=== PATIENT | female | born 1990 | race American Indian/Alaskan Native ===

== ENCOUNTER 2016-12-23 21:31 | Emergency (ER) | payer SELFPAY ==
[2016-12-23 22:14] LABS: Basophils % (Auto) 0.5 % (0.0-1.8); Eosinophils % (Auto) 1.3 % (0.0-4.3); Hematocrit 37.1 % (30.3-42.9); Hemoglobin 12.4 gm/dl (10.1-14.3); Mean Corpuscular HGB Conc 33 % (30-34); Mean Corpuscular Hemoglobin 26 pg (28-32); Mean Corpuscular Volume 79 fl (79-97); Platelet Count 315 K/mm3 (140-440); Red Blood Count 4.71 M/mm3 (3.65-5.03); Red Cell Distribution Width 14.9 % (13.2-15.2); White Blood Count 6.9 K/mm3 (4.5-11.0)
[2016-12-23 22:40] LABS: Alanine Aminotransferase 11 units/L (7-56); Albumin 4.2 g/dL (3.9-5); Albumin/Globulin Ratio 1.3 %; Alkaline Phosphatase 39 units/L (35-129); Anion Gap 17 mmol/L; BUN/Creatinine Ratio 14.28; Blood Urea Nitrogen 10 mg/dL (7-17); Calcium 9.1 mg/dL (8.4-10.2); Carbon Dioxide 24 mmol/L (22-30); Chloride 101.7 mmol/L (98-107); Glucose 80 mg/dL (65-100); Lipase 26 units/L (13-60); Sodium 139 mmol/L (137-145); Total Protein 7.5 g/dL (6.3-8.2)
[2016-12-24 05:12] LABS: Bacteria,Urine 1+ /HPF (Negative); Bilirubin,Urine NEG (Negative); Blood,Urine MOD (Negative); Ketones,Urine TR mg/dL (Negative); Leukocyte Esterase,Urine SM (Negative); Mucus,Urine 1+ /HPF; Nitrite,Urine POS (Negative); Protein,Urine <15 mg/dL mg/dL (Negative); Urobilinogen,Urine < 2.0 mg/dL (<2.0)
--- NOTE | 2016-12-24 07:00 | Emergency Department Report ---
ED Abdominal Pain HPI - General Chief Complaint: Abdominal Pain Stated Complaint: AB PAIN, HEADACHE Time Seen by Provider: 12/24/16 06:41 Source: patient Mode of arrival: Ambulatory Limitations: No Limitations - History of Present Illness Initial Comments: 26-year-old female with recent on September 11 here with complaint of continued diffuse abdominal pain and occasional vaginal bleeding. Patient states that the pain is diffuse and cramping comes and goes. States she's had it for about several months now. She's also had vaginal bleeding intermittently since the . She does not describe this heavy. Otherwise no other complaints no fevers chills nausea vomiting. No vaginal discharge. MD Complaint: abdominal pain -: Gradual Location: diffuse, suprapubic Radiation: none Migration to: no migration Severity scale (0 -10): 10 Quality: cramping Consistency: intermittent Improves With: nothing Worsens With: nothing Associated Symptoms: denies: nausea, vomiting, diarrhea, fever, chills, constipation, dysuria, hematemesis, hematochezia, melena, hematuria, anorexia - Related Data Previous Rx's Medication Instructions Recorded Last Taken Type Acetaminophen/Codeine [Tylenol #3] 1 tab PO Q6H PRN #20 tab 05/17/15 Unknown Rx Ondansetron [Zofran Odt] 4 mg PO Q8H PRN #10 tab.rapdis 05/17/15 Unknown Rx traMADol [Ultram 50 MG tab] 50 mg PO Q6HR PRN #20 tablet 05/17/15 Unknown Rx ALBUTEROL Inhaler [Proair] 2 puff IH QID PRN #1 inhalation 03/15/16 Unknown Rx ALBUTEROL NEB's [Proventil 0.083% 2.5 mg IH Q4H PRN #1 box 03/15/16 Unknown Rx NEBS] Amoxicillin/K Clav Tab [Augmentin 1 tab PO Q12HR #20 tab 03/15/16 Unknown Rx 875 mg] predniSONE [Deltasone] 50 mg PO QDAY #5 tab 03/15/16 Unknown Rx HYDROcodone/APAP 5-325 [Idabel 1 each PO Q6HR PRN #12 tablet 03/28/16 Unknown Rx 5/325] Ketorolac Tromethamine [Acular 1 drop OP Q6H PRN #1 drops 03/28/16 Unknown Rx 0.5% Opth Soln] Ofloxacin 0.3% [Ocuflox] 1 drops OP Q30MIN #1 bottle 03/28/16 Unknown Rx Ciprofloxacin HCl [Ciprofloxacin 500 mg PO BID #6 tablet 12/24/16 Unknown Rx TAB] Ibuprofen [Motrin] 600 mg PO Q8H PRN #30 tablet 12/24/16 Unknown Rx Allergies Allergy/AdvReac Type Severity Reaction Status Date / Time shellfish derived Allergy Angioedema Verified 12/23/16 21:43 ED Review of Systems ROS: Stated complaint: AB PAIN, HEADACHE Other details as noted in HPI Comment: All other systems reviewed and negative Constitutional: denies: chills, fever Eyes: denies: eye pain, eye discharge, vision change ENT: denies: ear pain, throat pain Respiratory: denies: cough, shortness of breath, wheezing Cardiovascular: denies: chest pain, palpitations Endocrine: no symptoms reported Gastrointestinal: abdominal pain. denies: nausea, diarrhea Genitourinary: abnormal menses. denies: urgency, dysuria, discharge Musculoskeletal: denies: back pain, joint swelling, arthralgia Skin: denies: rash, lesions Neurological: denies: headache, weakness, paresthesias Psychiatric: denies: anxiety, depression Hematological/Lymphatic: denies: easy bleeding, easy bruising ED Past Medical Hx - Past Medical History Previous Medical History?: Yes Hx Asthma: Yes - Surgical History Past Surgical History?: Yes Additional Surgical History: left eye - Family History Family history: no significant - Social History Smoking Status: Never Smoker Substance Use Type: Alcohol, Marijuana - Medications Home Medications: Home Medications Medication Instructions Recorded Confirmed Last Taken Type Acetaminophen/Codeine [Tylenol #3] 1 tab PO Q6H PRN #20 tab 05/17/15 Unknown Rx Ondansetron [Zofran Odt] 4 mg PO Q8H PRN #10 tab.rapdis 05/17/15 Unknown Rx traMADol [Ultram 50 MG tab] 50 mg PO Q6HR PRN #20 tablet 05/17/15 Unknown Rx ALBUTEROL Inhaler [Proair] 2 puff IH QID PRN #1 inhalation 03/15/16 Unknown Rx ALBUTEROL NEB's [Proventil 0.083% 2.5 mg IH Q4H PRN #1 box 03/15/16 Unknown Rx NEBS] Amoxicillin/K Clav Tab [Augmentin 1 tab PO Q12HR #20 tab 03/15/16 Unknown Rx 875 mg] predniSONE [Deltasone] 50 mg PO QDAY #5 tab 03/15/16 Unknown Rx HYDROcodone/APAP 5-325 [Idabel 1 each PO Q6HR PRN #12 tablet 03/28/16 Unknown Rx 5/325] Ketorolac Tromethamine [Acular 1 drop OP Q6H PRN #1 drops 03/28/16 Unknown Rx 0.5% Opth Soln] Ofloxacin 0.3% [Ocuflox] 1 drops OP Q30MIN #1 bottle 03/28/16 Unknown Rx Ciprofloxacin HCl [Ciprofloxacin 500 mg PO BID #6 tablet 12/24/16 Unknown Rx TAB] Ibuprofen [Motrin] 600 mg PO Q8H PRN #30 tablet 12/24/16 Unknown Rx ED Physical Exam - General Limitations: No Limitations General appearance: alert, in no apparent distress - Head Head exam: Present: atraumatic, normocephalic - Eye Eye exam: Present: normal appearance. Absent: scleral icterus, conjunctival injection - ENT ENT exam: Present: mucous membranes moist - Neck Neck exam: Present: normal inspection. Absent: lymphadenopathy - Respiratory Respiratory exam: Present: normal lung sounds bilaterally. Absent: respiratory distress, wheezes, rales - Cardiovascular Cardiovascular Exam: Present: regular rate, normal rhythm. Absent: systolic murmur, diastolic murmur, rubs, gallop - GI/Abdominal GI/Abdominal exam: Present: soft, normal bowel sounds. Absent: distended, tenderness, guarding, rebound - Extremities Exam Extremities exam: Present: normal inspection - Back Exam Back exam: Present: normal inspection - Neurological Exam Neurological exam: Present: alert, oriented X3 - Psychiatric Psychiatric exam: Present: normal affect, normal mood - Skin Skin exam: Present: warm, dry, intact, normal color. Absent: rash ED Course Vital Signs 12/23/16 12/24/16 12/24/16 21:43 01:55 08:03 Temperature 98.3 F 98.6 F Pulse Rate 64 57 L 64 Respiratory 20 18 16 Rate Blood Pressure 131/86 129/79 Blood Pressure 104/44 [Left] O2 Sat by Pulse 100 100 100 Oximetry 12/24/16 08:04 Temperature Pulse Rate Respiratory 16 Rate Blood Pressure Blood Pressure [Left] O2 Sat by Pulse 100 Oximetry ED Medical Decision Making - Lab Data Result diagrams: 12/23/16 22:02 12/23/16 22:01 Laboratory Results - last 24 hr 12/23/16 12/23/16 12/23/16 21:57 22:01 22:02 WBC 6.9 RBC 4.71 Hgb 12.4 Hct 37.1 MCV 79 MCH 26 L MCHC 33 RDW 14.9 Plt Count 315 Lymph % (Auto) 36.4 H Linn % (Auto) 9.4 H Eos % (Auto) 1.3 Baso % (Auto) 0.5 Lymph # 2.5 Linn # 0.6 Eos # 0.1 Baso # 0.0 Seg Neutrophils % 52.4 Seg Neutrophils # 3.6 Sodium 139 Potassium 4.0 Chloride 101.7 Carbon Dioxide 24 Anion Gap 17 BUN 10 Creatinine 0.7 Estimated GFR > 60 BUN/Creatinine Ratio 14.28 Glucose 80 Calcium 9.1 Total Bilirubin 0.70 AST 11 ALT 11 Alkaline Phosphatase 39 Total Protein 7.5 Albumin 4.2 Albumin/Globulin Ratio 1.3 Lipase 26 HCG, Qual Negative Urine Color Urine Turbidity Urine pH Ur Specific Wellborn Urine Protein Urine Glucose (UA) Urine Ketones Urine Blood Urine Nitrite Urine Bilirubin Urine Urobilinogen Ur Leukocyte Esterase Urine WBC (Auto) Urine RBC (Auto) U Epithel Cells (Auto) Urine Bacteria (Auto) Urine Mucus 12/24/16 04:14 WBC RBC Hgb Hct MCV MCH MCHC RDW Plt Count Lymph % (Auto) Linn % (Auto) Eos % (Auto) Baso % (Auto) Lymph # Linn # Eos # Baso # Seg Neutrophils % Seg Neutrophils # Sodium Potassium Chloride Carbon Dioxide Anion Gap BUN Creatinine Estimated GFR BUN/Creatinine Ratio Glucose Calcium Total Bilirubin AST ALT Alkaline Phosphatase Total Protein Albumin Albumin/Globulin Ratio Lipase HCG, Qual Urine Color Yellow Urine Turbidity Clear Urine pH 6.0 Ur Specific Wellborn 1.013 Urine Protein <15 mg/dl Urine Glucose (UA) Neg Urine Ketones Tr Urine Blood Mod Urine Nitrite Pos Urine Bilirubin Neg Urine Urobilinogen < 2.0 Ur Leukocyte Esterase Sm Urine WBC (Auto) 18.0 H Urine RBC (Auto) 4.0 U Epithel Cells (Auto) 1.0 Urine Bacteria (Auto) 1+ Urine Mucus 1+ - Medical Decision Making 26-year-old female here with diffuse abdominal pain more significant in the suprapubic region here with occasional intermittent vaginal bleeding. Her clinical exam she is mildly tender in suprapubic region but otherwise no other complaints. Her labs show an elevation in white blood cell count in her urine and positive nitrates. She likely has UTI. She does not have a elevation in white blood cell count however given her persistent symptoms I will get a transvaginal ultrasound to rule out any sort of retained products of conception although I think this is highly unlikely at this point. Plan to treat with oral antibiotics for UTI. Plan to treat patient for UTI. Ultrasound shows no retained products and uterus but it does show bilateral complex cystic structures in the ovaries. These could be hemorrhagic cysts versus other process. Plan have the patient follow up for repeat ultrasound in 6 weeks. We'll treat the patient with outpatient antibiotics. Portions of this chart were dictated with dictation software. There may be dictation errors contained within this note. Critical care attestation.: If time is entered above; I have spent that time in minutes in the direct care of this critically ill patient, excluding procedure time. ED Disposition Clinical Impression: UTI (urinary tract infection), Complex ovarian cyst Disposition: DC-01 TO HOME OR SELFCARE Is pt being admited?: No Condition: Stable Instructions: Abdominal Pain (ED), Ovarian Cyst (ED), Urinary Tract Infection in Women (ED) Prescriptions: Ciprofloxacin HCl [Ciprofloxacin TAB] 500 mg PO BID #6 tablet Ibuprofen [Motrin] 600 mg PO Q8H PRN #30 tablet PRN Reason: Pain Referrals: PRIMARY CARE, [Primary Care Provider] - 3-5 Days RODERICK ARORA MD [Staff Physician] - as needed (Call to set up a follow-up appointment for repeat ultrasound in 6 weeks)
[2016-12-24 08:05] VITALS: BP 104/44
--- NOTE | 2016-12-24 08:18 | Ultrasound Report ---
ULTRASOUND PELVIS - TRANSVAGINAL INDICATION: Abdominal/pelvic pain. Evaluate for retained products. Status post on 09/11/2016. COMPARISON: None similar. FINDINGS: Transvaginal pelvic sonography demonstrates a homogenous 6.9 x 4.3 x 4.9 cm anteverted uterus with endometrial thickness of approximately 3 mm toward the fundus, endovaginal image 8. Minimal pelvic free fluid. A 4.8 x 4.1 x 4.8 cm right ovary near completely replaced by an approximately 4.2 cm complex, possibly hemorrhagic intrinsic cyst with diffuse intrinsic echoes/septations. Left ovary is 4.3 x 4.1 x 3.9 cm and also demonstrates a 3.5 cm complex intrinsic appearance as on endovaginal image 26. CONCLUSION: 1. Homogenous uterus without sonographic evidence of retained products of conception. Please correlate. 2. Bilateral ovarian complex masses/hemorrhagic cyst noted, as described. Sonographic follow-up in approximately 6 weeks or opposite phase of the menstrual cycle may also be considered to assess for interval change or resolution, as warranted. Thank you for the opportunity to participate in this patient's care.
== END 2016-12-24 09:58 | disposition home or self-care (01) ==
LOC: ED 21:31
DX: N39.0 Urinary tract infection, site not specified (principal); N83.209 Unspecified ovarian cyst, unspecified side; J45.909 Unspecified asthma, uncomplicated; F12.10 Cannabis abuse, uncomplicated
CPT/HCPCS: 36415; 76830; 80053; 81001; 83690; 84703; 85025

== ENCOUNTER 2018-11-13 08:33 | Emergency (ER) | payer MEDICAID ==
[2018-11-13] MEDS ORDERED: SUBLIMAZE IV ONE (09:22)
[2018-11-13] MEDS ORDERED: NACL 0.9% 500 ML 500 ML IV ONE (09:23)
[2018-11-13] MEDS ORDERED: ZOFRAN IV ONE (09:23)
[2018-11-13] MEDS ORDERED: TYLENOL PO ONE (09:24)
[2018-11-13 09:49] LABS: Hematocrit 35.1 % (30.3-42.9); Hemoglobin 11.9 gm/dl (10.1-14.3); Mean Corpuscular HGB Conc 34 % (30-34); Mean Corpuscular Volume 81 fl (79-97); Platelet Count 314 K/mm3 (140-440); Red Blood Count 4.35 M/mm3 (3.65-5.03); Red Cell Distribution Width 13.5 % (13.2-15.2)
[2018-11-13 09:56] LABS: Bilirubin,Urine NEG (Negative); Blood,Urine MOD (Negative); Color,Urine Yellow (Yellow); Mucus,Urine FEW /HPF; Protein,Urine <15 mg/dL mg/dL (Negative); Urobilinogen,Urine < 2.0 mg/dL (<2.0)
[2018-11-13 10:01] LABS: INR 1.39 (0.87-1.13)
[2018-11-13 10:14] LABS: Alanine Aminotransferase 9 units/L (7-56); Albumin 3.9 g/dL (3.9-5); BUN/Creatinine Ratio 8; Blood Urea Nitrogen 5 mg/dL (7-17); Calcium 9.1 mg/dL (8.4-10.2); Hemolysis Index 1
--- NOTE | 2018-11-13 10:25 | XRay Report ---
CHEST 2 VIEWS INDICATION: cp sob. COMPARISON: None available. FINDINGS: Support devices: None. Heart: Normal. Lungs/pleura: Right basal opacities on the frontal view with an air bronchogram in the larger opacity . The lungs are otherwise clear. No pleural effusion. No pneumothorax. Additional findings: None. IMPRESSION: Right basal opacities suggest atelectasis or pneumonia. Signer Name: Bola Cisneros MD Signed: 11/13/2018 10:21 AM Workstation Name: [id number]
--- NOTE | 2018-11-13 10:39 | Emergency Department Report ---
ED General Adult HPI - General Chief complaint: Vaginal Bleeding Stated complaint: ABD PAIN/VAG BLEED Time Seen by Provider: 11/13/18 09:10 Source: patient, EMS (ems notes not available at time of chart dictation), RN notes reviewed Mode of arrival: Stretcher Limitations: No Limitations - History of Present Illness Initial comments: This is a 27-year-old female. This patient is not known to this provider previously. She thinks that she is today. She assumes that if she is today, she is 7, para 3. Her last menstrual period is reportedly August 28. She presents to the ER with multiple complaints. Her first complaint is painful vaginal bleeding. She has suprapubic and bilateral lower quadrant pain. This pain has been present over the past day or so. It got worse at 3:00 in the morning. She describes a bloody vaginal discharge and brown vaginal discharge. The pain increases with palpation and decreases with rest. There is positive nausea. Positive vomiting 3, nonbloody, nonbilious. She denies urinary symp toms. She denies fever. She may have chills. She is not sure if she has a cough. She has no nasal discharge. She has no epistaxis. She has no dental pain. She also describes right upper quadrant pain and right thoracic pain, increases with palpation and deep inspiration. Decreases with rest. It radiates to the back. It has been present since 3:00 in the morning. It is constant -: Gradual, hour(s), days(s) Location: chest, abdomen Radiation: back Severity scale (0 -10): 9 Quality: other Consistency: other Improves with: other Worsens with: other - Related Data Previous Rx's Medication Instructions Recorded Last Taken Type Acetaminophen/Codeine [Tylenol #3] 1 tab PO Q6H PRN #20 tab 05/17/15 Unknown Rx Ondansetron [Zofran Odt] 4 mg PO Q8H PRN #10 tab.rapdis 05/17/15 Unknown Rx traMADol [Ultram 50 MG tab] 50 mg PO Q6HR PRN #20 tablet 05/17/15 Unknown Rx ALBUTEROL Inhaler (OR & NICU) 2 puff IH QID PRN #1 inhalation 03/15/16 Unknown Rx [Proair] ALBUTEROL NEB's [Proventil 0.083% 2.5 mg IH Q4H PRN #1 box 03/15/16 Unknown Rx NEBS] Amoxicillin/K Clav Tab [Augmentin 1 tab PO Q12HR #20 tab 03/15/16 Unknown Rx 875 mg] predniSONE [Deltasone] 50 mg PO QDAY #5 tab 03/15/16 Unknown Rx HYDROcodone/APAP 5-325 [[place] 1 each PO Q6HR PRN #12 tablet 03/28/16 Unknown Rx 5/325] Ketorolac Tromethamine [Acular 1 drop OP Q6H PRN #1 drops 03/28/16 Unknown Rx 0.5% Opth Soln] Ofloxacin 0.3% [Ocuflox 0.3% opth] 1 drops OP Q30MIN #1 bottle 03/28/16 Unknown Rx Ciprofloxacin HCl [Ciprofloxacin 500 mg PO BID #6 tablet 12/24/16 Unknown Rx TAB] Ibuprofen [Motrin] 600 mg PO Q8H PRN #30 tablet 12/24/16 Unknown Rx Acetaminophen [Non-Aspirin Extra 500 mg PO Q6HR PRN #30 tablet 11/13/18 Unknown Rx Strength] Albuterol Sulfate [Proair 90 mcg IH Q4HR PRN #2 aer.pow.ba 11/13/18 Unknown Rx Respiclick] Amoxicillin/Potassium Clav 1 each PO BID #13 tablet 11/13/18 Unknown Rx [Augmentin 875-125 Tablet] Doxylamine Succinate/Vit B6 1 each PO QHS PRN #30 tablet. 11/13/18 Unknown Rx [Derian Dr 10-10 mg Tablet] Gisela Root [Gisela] 250 mg PO QID PRN #30 capsule 11/13/18 Unknown Rx Vit-Fe Fumar-FA [ 1 tab PO QDAY #30 tablet 11/13/18 Unknown Rx Vitamin] Allergies Allergy/AdvReac Type Severity Reaction Status Date / Time shellfish derived Allergy Angioedema Verified 12/23/16 21:43 ED Review of Systems ROS: Stated complaint: ABD PAIN/VAG BLEED Other details as noted in HPI Constitutional: chills, malaise. denies: fever Eyes: denies: eye discharge ENT: denies: epistaxis Respiratory: cough, shortness of breath Cardiovascular: chest pain Gastrointestinal: abdominal pain, nausea, vomiting Genitourinary: discharge. denies: urgency, dysuria Musculoskeletal: back pain Skin: denies: lesions Neurological: denies: headache Psychiatric: anxiety Hematological/Lymphatic: denies: easy bleeding ED Past Medical Hx - Past Medical History Previous Medical History?: Yes Hx Asthma: Yes - Surgical History Past Surgical History?: Yes Additional Surgical History: left eye, 3 abortions - Social History Smoking Status: Current Some Day Smoker - Medications Home Medications: Home Medications Medication Instructions Recorded Confirmed Last Taken Type Acetaminophen/Codeine [Tylenol #3] 1 tab PO Q6H PRN #20 tab 05/17/15 Unknown Rx Ondansetron [Zofran Odt] 4 mg PO Q8H PRN #10 tab.rapdis 05/17/15 Unknown Rx traMADol [Ultram 50 MG tab] 50 mg PO Q6HR PRN #20 tablet 05/17/15 Unknown Rx ALBUTEROL Inhaler (OR & NICU) 2 puff IH QID PRN #1 inhalation 03/15/16 Unknown Rx [Proair] ALBUTEROL NEB's [Proventil 0.083% 2.5 mg IH Q4H PRN #1 box 03/15/16 Unknown Rx NEBS] Amoxicillin/K Clav Tab [Augmentin 1 tab PO Q12HR #20 tab 03/15/16 Unknown Rx 875 mg] predniSONE [Deltasone] 50 mg PO QDAY #5 tab 03/15/16 Unknown Rx HYDROcodone/APAP 5-325 [[place] 1 each PO Q6HR PRN #12 tablet 03/28/16 Unknown Rx 5/325] Ketorolac Tromethamine [Acular 1 drop OP Q6H PRN #1 drops 03/28/16 Unknown Rx 0.5% Opth Soln] Ofloxacin 0.3% [Ocuflox 0.3% opth] 1 drops OP Q30MIN #1 bottle 03/28/16 Unknown Rx Ciprofloxacin HCl [Ciprofloxacin 500 mg PO BID #6 tablet 12/24/16 Unknown Rx TAB] Ibuprofen [Motrin] 600 mg PO Q8H PRN #30 tablet 12/24/16 Unknown Rx Acetaminophen [Non-Aspirin Extra 500 mg PO Q6HR PRN #30 tablet 11/13/18 Unknown Rx Strength] Albuterol Sulfate [Proair 90 mcg IH Q4HR PRN #2 aer.pow.ba 11/13/18 Unknown Rx Respiclick] Amoxicillin/Potassium Clav 1 each PO BID #13 tablet 11/13/18 Unknown Rx [Augmentin 875-125 Tablet] Doxylamine Succinate/Vit B6 1 each PO QHS PRN #30 tablet. 11/13/18 Unknown Rx [Diclegis Dr 10-10 mg Tablet] Gisela Root [Gisela] 250 mg PO QID PRN #30 capsule 11/13/18 Unknown Rx Vit-Fe Fumar-FA [ 1 tab PO QDAY #30 tablet 11/13/18 Unknown Rx Vitamin] ED Physical Exam - General Limitations: No Limitations General appearance: alert, anxious, in distress - Head Head exam: Present: atraumatic, normocephalic - Eye Eye exam: Present: normal appearance, EOMI. Absent: nystagmus - ENT ENT exam: Present: normal exam, normal orophraynx, mucous membranes moist, normal external ear exam - Neck Neck exam: Present: normal inspection, full ROM. Absent: tenderness, meningismus - Respiratory Respiratory exam: Present: normal lung sounds bilaterally, chest wall tenderness (chaperoned by ARNEL Foster). Absent: respiratory distress, wheezes, rales, rhonchi, stridor - Cardiovascular Cardiovascular Exam: Present: regular rate, normal rhythm, normal heart sounds. Absent: bradycardia, tachycardia, irregular rhythm, systolic murmur, diastolic murmur, rubs, gallop - GI/Abdominal GI/Abdominal exam: Present: soft, tenderness, other (there is suprapubic and bilateral lower quadrant tenderness. There is negative Nolen sign. The is negative Rovsing sign. Suprapubic and left lower quadrant more tender than the right lower quadrant). Absent: distended, guarding, rebound, rigid, pulsatile mass - External exam: Present: normal external exam, bleeding, other (chaperoned by ARNEL Soler) Speculum exam: Present: vaginal bleeding - Extremities Exam Extremities exam: Present: normal inspection, full ROM, other (2+ pulses noted in the bilateral upper, lower extremities. Compartments soft. No long bony te nderness. The pelvis is stable.). Absent: pedal edema, joint swelling, calf tenderness - Back Exam Back exam: Present: normal inspection, full ROM. Absent: tenderness, CVA tenderness (R), CVA tenderness (L), paraspinal tenderness, vertebral tenderness - Neurological Exam Neurological exam: Present: alert, oriented X3, normal gait, other (Extraocular movements intact. Tongue midline. No facial droop. Facial sensation intact to light touch in the V1, V2, V3 distribution bilaterally. 5 and 5 strength in 4 extremities.. Sensation is intact to light touch in 4 extremities.). Absent: motor sensory deficit - Psychiatric Psychiatric exam: Present: anxious - Skin Skin exam: Present: warm, dry, intact, normal color. Absent: rash ED Course Vital Signs 11/13/18 11/13/18 11/13/18 08:55 09:00 09:43 Temperature Pulse Rate Respiratory Rate Blood Pressure 124/89 124/89 Blood Pressure [Right] O2 Sat by Pulse 100 98 100 Oximetry 11/13/18 11/13/18 11/13/18 09:51 10:44 10:46 Temperature 98.8 F Pulse Rate 75 Respiratory 16 Rate Blood Pressure 124/89 Blood Pressure 113/70 [Right] O2 Sat by Pulse 99 98 Oximetry 11/13/18 11/13/18 11/13/18 11:01 11:30 12:01 Temperature Pulse Rate Respiratory Rate Blood Pressure 113/70 124/89 124/89 Blood Pressure [Right] O2 Sat by Pulse 100 99 100 Oximetry 11/13/18 12:31 Temperature Pulse Rate Respiratory Rate Blood Pressure 124/89 Blood Pressure [Right] O2 Sat by Pulse 100 Oximetry - Reevaluation(s) Reevaluation #1: 11/13/18 10:57 Differential diagnosis, including but not limited to: Ectopic , threatened miscarriage, ovarian cyst, urinary tract infection, constipation, costochondritis, pneumonia, acute coronary syndrome, pericarditis, pulmonary embolism Assessment and plan: 27-year-old female with 2 complaints Complaint #1, lower abdominal pain with reported and vaginal bleeding. The patient is afebrile with reassuring vital signs. She has mild diffuse lower abdominal tenderness. Left side greater than right side. As per review of old ultrasounds, patient noted to have complex ovarian cysts and hemorrhagic cysts. We'll perform gynecologic exam, gynecologic ultrasound, give pain medication, and reassess. Complaint #2, pleuritic right-sided chest wall pain, and possible cough/nausea. The patient is not tachycardic or hypoxic. However, she reports that she is . She is low risk by well's criteria, however d-dimer sent, elevated, therefore, CT scan of the chest will be obtained to screen for pulmonary embolism. Extensive discussion had with patient's while nurse ARNEL MEDINA was present as a witness, patient was informed about the risks of radiation exposure cancer, defects. She verbalizes understanding and has consented to CT scan acquisition. Acute coronary syndrome, pericarditis myocarditis unlikely, as the patient is not febrile, not tachycardic, and has a normal troponin. Patient from a cardiovascular risk profile standpoint is low risk by the ARLEEN score, heart score. Reevaluation #2: 11/13/18 11:40 Ultrasound shows no intrauterine . Quantitative hCG 242. Discussed with obstetrics occupational medicine specialist, Dr. Stephens, who agreed with plan for 2 day follow-up and outpatient follow-up for lower abdominal pain, vaginal bleeding and positive test. He indicates that his group is amenable to see the patient as outpatient on Tuesday. The patient will need to call for follow-up appointment. Reevaluation #3: 11/13/18 13:57 CT scan of the chest corroborates diagnosis of right lower lobe community- acquired pneumonia. Patient saturating well, playing on a cellular phone, and does not appear to be in any acute distress. The patient is a suitable candidate for oral outpatient antibiotic therapy. The patient will be commenced on amoxicillin antibiotic. She will be discharged with a 7 day prescription f or amoxicillin antibiotic. We will also discharge with Tylenol for pain, vitamins, nausea medication, and albuterol as needed. We will have the patient come back in 2-3 days for a repeat checkup/evaluation for her lower abdominal pain, , and community-acquired pneumonia. The patient verbalizes understanding, and indicates that she is reliable to follow- up. ED Medical Decision Making - Lab Data Result diagrams: 11/13/18 09:35 11/13/18 09:35 Vital Signs 11/13/18 11/13/18 11/13/18 08:55 09:00 09:43 Temperature Blood Pressure 124/89 124/89 O2 Sat by Pulse 100 98 100 Oximetry 11/13/18 09:51 Temperature 98.8 F Blood Pressure O2 Sat by Pulse Oximetry Lab Results 11/13/18 11/13/18 11/13/18 Range/Units 09:35 09:35 09:35 WBC 11.6 H (4.5-11.0) K/mm3 RBC 4.35 (3.65-5.03) M/mm3 Hgb 11.9 (10.1-14.3) gm/dl Hct 35.1 (30.3-42.9) % MCV 81 (79-97) fl MCH 27 L (28-32) pg MCHC 34 (30-34) % RDW 13.5 (13.2-15.2) % Plt Count 314 (140-440) K/mm3 PT 16.7 H (12.2-14.9) Sec. INR 1.39 H (0.87-1.13) D-Dimer 468.49 H (0-234) ng/mlDDU Sodium 138 (137-145) mmol/L Potassium 3.6 (3.6-5.0) mmol/L Chloride 103.4 (98-107) mmol/L Carbon Dioxide 22 (22-30) mmol/L Anion Gap 16 mmol/L BUN 5 L (7-17) mg/dL Creatinine 0.6 L (0.7-1.2) mg/dL Estimated GFR > 60 ml/min BUN/Creatinine Ratio 8 % Glucose 102 H (65-100) mg/dL Calcium 9.1 (8.4-10.2) mg/dL Magnesium (1.7-2.3) mg/dL Total Bilirubin 0.40 (0.1-1.2) mg/dL AST 11 (5-40) units/L ALT 9 (7-56) units/L Alkaline Phosphatase 39 (35-129) units/L Total Creatine Kinase (30-135) units/L Troponin T < 0.010 (0.00-0.029) ng/mL Total Protein 7.4 (6.3-8.2) g/dL Albumin 3.9 (3.9-5) g/dL Albumin/Globulin Ratio 1.1 % HCG, Quant (0-4) mIU/mL Urine Color (Yellow) Urine Turbidity (Clear) Urine pH (5.0-7.0) Ur Specific [place] (1.003-1.030) Urine Protein (Negative) mg/dL Urine Glucose (UA) (Negative) mg/dL Urine Ketones (Negative) mg/dL Urine Blood (Negative) Urine Nitrite (Negative) Urine Bilirubin (Negative) Urine Urobilinogen (<2.0) mg/dL Ur Leukocyte Esterase (Negative) Urine WBC (Auto) (0.0-6.0) /HPF Urine RBC (Auto) (0.0-6.0) /HPF U Epithel Cells (Auto) (0-13.0) /HPF Urine Mucus /HPF 11/13/18 11/13/18 11/13/18 Range/Units 09:35 09:43 09:45 WBC (4.5-11.0) K/mm3 RBC (3.65-5.03) M/mm3 Hgb (10.1-14.3) gm/dl Hct (30.3-42.9) % MCV (79-97) fl MCH (28-32) pg MCHC (30-34) % RDW (13.2-15.2) % Plt Count (140-440) K/mm3 PT (12.2-14.9) Sec. INR (0.87-1.13) D-Dimer (0-234) ng/mlDDU Sodium (137-145) mmol/L Potassium (3.6-5.0) mmol/L Chloride (98-107) mmol/L Carbon Dioxide (22-30) mmol/L Anion Gap mmol/L BUN (7-17) mg/dL Creatinine (0.7-1.2) mg/dL Estimated GFR ml/min BUN/Creatinine Ratio % Glucose (65-100) mg/dL Calcium (8.4-10.2) mg/dL Magnesium 1.90 (1.7-2.3) mg/dL Total Bilirubin (0.1-1.2) mg/dL AST (5-40) units/L ALT (7-56) units/L Alkaline Phosphatase (35-129) units/L Total Creatine Kinase 122 (30-135) units/L Troponin T (0.00-0.029) ng/mL Total Protein (6.3-8.2) g/dL Albumin (3.9-5) g/dL Albumin/Globulin Ratio % HCG, Quant 242.9 H (0-4) mIU/mL Urine Color Yellow (Yellow) Urine Turbidity Clear (Clear) Urine pH 8.0 H (5.0-7.0) Ur Specific [place] 1.013 (1.003-1.030) Urine Protein <15 mg/dl (Negative) mg/dL Urine Glucose (UA) Neg (Negative) mg/dL Urine Ketones 20 (Negative) mg/dL Urine Blood Mod (Negative) Urine Nitrite Neg (Negative) Urine Bilirubin Neg (Negative) Urine Urobilinogen < 2.0 (<2.0) mg/dL Ur Leukocyte Esterase Neg (Negative) Urine WBC (Auto) 1.0 (0.0-6.0) /HPF Urine RBC (Auto) 1.0 (0.0-6.0) /HPF U Epithel Cells (Auto) 1.0 (0-13.0) /HPF Urine Mucus Few /HPF Vital Signs 11/13/18 11/13/18 11/13/18 08:55 09:00 09:43 Temperature Pulse Rate Respiratory Rate Blood Pressure 124/89 124/89 Blood Pressure [Right] O2 Sat by Pulse 100 98 100 Oximetry 11/13/18 11/13/18 09:51 10:46 Temperature 98.8 F Pulse Rate 75 Respiratory 16 Rate Blood Pressure Blood Pressure 113/70 [Right] O2 Sat by Pulse 98 Oximetry - EKG Data -: EKG Interpreted by Al EKG shows normal: sinus rhythm Rate: normal - EKG Data When compared to previous EKG there are: previous EKG unavailable 11/13/18 11:00 This is a normal sinus rhythm, 85 bpm, normal axis, high left ventricular voltage, the EKG is abnormal, the EKG is not consistent with ST elevation myocardial infarction. - Radiology Data Radiology results: report reviewed, image reviewed ort Referring Physician: PEDRO NARAYAN Patient Name: EPIFANIO CONTE Date of : 1990 Sex: Female Report Date: 2018-11-13 Report Status: Finalized Findings [facility] [address] [place] [address] XRay Report Signed Patient: EPIFANIO CONTE MR#: [id number] : 1990 Acct:[id number] Age/Sex: 27 / F ADM Date: 11/13/18 Loc: ED Attending Dr: Ordering Physician: PEDRO NARAYAN MD Date of Service: 11/13/18 Procedure(s): XR chest routine 2V Accession Number(s): [id number] cc: PEDRO NARAYAN MD Fluoro Time In Minutes: CHEST 2 VIEWS INDICATION: cp sob. COMPARISON: None available. FINDINGS: Support devices: None. Heart: Normal. Lungs/pleura: Right basal opacities on the frontal view with an air bronchogram in the larger opacity. The lungs are otherwise clear. No pleural effusion. No pneumothorax. Additional findings: None. IMPRESSION: Right basal opacities suggest atelectasis or pneumonia. Signer Name: Mitzi Godoy MD Signed: 11/13/2018 10:21 AM Workstation Name: [id number] Transcribed By: REF Dictated By: MITZI GODOY MD Electronically Authenticated By: MITZI GODOY MD Signed Date/Time: 11/13/18 1021 Print Report Referring Physician: PEDRO NARAYAN Patient Name: EPIFANIO CONTE Date of : 1990 Sex: Female Report Date: 2018-11-13 Report Status: [place] [address] Ultrasound Report Signed Patient: EPIFANIO CONTE MR#: [id number] : 1990 Acct:[id number] Age/Sex: 27 / F ADM Date: 11/13/18 Loc: ED Attending Dr: Ordering Physician: PEDRO NARAYAN MD Date of Service: 11/13/18 Procedure(s): US transvaginal Accession Number(s): [id number] cc: PEDRO NARAYAN MD ULTRASOUND PELVIS DUPLEX DOPPLER COMPLETE ULTRASOUND TRANSVAGINAL HISTORY: Lower abdominal pain, pelvic pain TECHNIQUE: Transabdominal and transvaginal imaging with color and spectral Doppler interrogation. COMPARISON: Ultrasound transvaginal report dated 12/24/2016. FINDINGS: The uterus is anteverted and measures 8.5 x 4.0 x 5.5 cm. No uterine fibroid disease is identified. The cervix is unremarkable. The endometrium measures 8 mm in thickness. No obvious mass or fluid collection. The right ovary measures 3.5 x 2.1 x 3.8 cm. There is a 3.2 cm complex area in the right ovary of uncertain significance. Recently ruptured cyst The left ovary is unremarkable and measures 3.2 x 1.0 x 2.9 cm. There is trace free fluid in the cul-de-sac. Spectral Doppler waveforms demonstrate arterial flow to both ovaries. IMPRESSION: 3.2 cm complex area in the right ovary of uncertain significance. Possible recently ruptured ovarian cyst. No aggressive mass or pelvic abscess. The left ovarian lesion described on the previous exam has resolved. Unremarkable uterus and endometrium. Signer Name: Tex Saeed Jr, MD Signed: 11/13/2018 11:25 AM Workstation Name: [id number] Transcribed By: TTR Dictated By: TEX SAEED JR, MD Electronically Authenticated By: TEX SAEED JR, MD Signed Date/Time: 11/13/18 1125 Print Report Referring Physician: PEDRO NARAYAN Patient Name: EPIFANIO CONTE Date of : 1990 Sex: Female Report Date: 2018-11-13 Report Status: Finalized Findings [facility] [address] [place] [address] Cat Scan Report Signed Patient: EPIFANIO CONTE MR#: [id number] : 1990 Acct:[id number] Age/Sex: 27 / F ADM Date: 11/13/18 Loc: ED Attending Dr: Ordering Physician: PEDRO NARAYAN MD Date of Service: 11/13/18 Procedure(s): CT angio chest Accession Number(s): [id number] cc: PEDRO NARAYAN MD CTA CHEST WITH IV CONTRAST INDICATION / CLINICAL INFORMATION: Chest pain and shortness of breath. TECHNIQUE: Axial CT images were obtained through the chest after injection of 100 cc Omnipaque 350 IV contrast. Consent was obtained prior to the administration of the contrast. 3 plane MIP and/or 3D reconstructions were produced. All CT scans at this location are performed using CT dose reduction based on patient size. COMPARISON: None available. FINDINGS: PULMONARY ARTERIES: No pulmonary emboli. THORACIC AORTA: Normal. HEART: Normal. CORONARY ARTERIES: No significant calcification. PLEURA: No pleural effusion. No pneumothorax. LYMPH NODES: Mild right hilar lymph node enlargement. 3 lymph nodes measure approximately 1 cm each. LUNGS: Wedge-shaped consolidation of the right lower lobe extends to the pleura. A second area of more patchy airspace disease in the right lower lobe. The rest of the lungs are clear. ADDITIONAL FINDINGS: None. UPPER ABDOMEN: No acute findings. SKELETAL STRUCTURES: No significant osseous abnormality. IMPRESSION: 1. No CT evidence for pulmonary embolism. 2. Right lower lobe pneumonia with mild right hilar lymphadenopathy. Signer Name: Mitzi Godoy MD Signed: 11/13/2018 1:39 PM Workstation Name: [id number] Transcribed By: REF Dictated By: MITZI GODOY MD Electronically Authenticated By: MITZI GODOY MD Signed Date/Time: 11/13/18 2752 Critical care attestation.: If time is entered above; I have spent that time in minutes in the direct care of this critically ill patient, excluding procedure time. ED Disposition Clinical Impression: Vaginal bleeding during Right lower lobe pneumonia Qualifiers: Pneumonia type: due to unspecified organism Qualified Code(s): J18.1 - Lobar pneumonia, unspecified organism Disposition: - TO HOME OR SELFCARE Is pt being admited?: No Does the pt Need Aspirin: No Condition: Stable Instructions: Bacterial Pneumonia (ED) Additional Instructions: Drink 4-6 cups of water per day for the next week. Take gisela, diclegis medications as needed for nausea/vomiting. The acetaminophen as treated for chest wall pain and lower abdominal pain. Take the antibiotic twice daily as directed. Take the albuterol medication as needed for cough, wheezing, shortness of breath. Recommend the patient follow up in 2-3 days for repeat checkup/evaluation. The patient may return to this emergency room for repeat checkup/evaluation on both her pneumonia, and vaginal bleeding during , or she may follow-up with the listed gynecology practice. Rest, avoid heavy lifting, and avoid strenuous physical activities. Do not have sex until cleared by her primary care doctor or humanities and languages professor. Do not take Motrin, ibuprofen, Naprosyn, Aleve. Do not consume alcohol, does not smoke cigarettes. Return to the emergency room right away with new, worse or different symptoms, vaginal bleeding more than 2 pads soaked for hour, lightheadedness, severe shortness of breath, intractable nausea and vomiting, change in mental status, or any new, worsening or different symptoms not present on the initial emergency room evaluation Prescriptions: Doxylamine Succinate/Vit B6 [Derian [place] 10-10 mg Tablet] 1 each PO QHS PRN #30 tablet. PRN Reason: Nausea Amoxicillin/Potassium Clav [Augmentin 875-125 Tablet] 1 each PO BID #13 tablet Gisela Root [Gisela] 250 mg PO QID PRN #30 capsule PRN Reason: Nausea Acetaminophen [Non-Aspirin Extra Strength] 500 mg PO Q6HR PRN #30 tablet PRN Reason: Pain , Severe (7-10) Vit-Fe Fumar-FA [ Vitamin] 1 tab PO QDAY #30 tablet Albuterol Sulfate [Proair Respiclick] 90 mcg IH Q4HR PRN #2 aer.pow.ba PRN Reason: Wheezing Referrals: [facility] [Provider Group] - 3-5 Days MARIA LUISA STEPHENS MD [Staff Physician] - 3-5 Days
--- NOTE | 2018-11-13 11:30 | Ultrasound Report ---
ULTRASOUND PELVIS DUPLEX DOPPLER COMPLETE ULTRASOUND TRANSVAGINAL HISTORY: Lower abdominal pain, pelvic pain TECHNIQUE: Transabdominal and transvaginal imaging with color and spectral Doppler interrogation. COMPARISON: Ultrasound transvaginal report dated 12/24/2016. FINDINGS: The uterus is anteverted and measures 8.5 x 4.0 x 5.5 cm. No uterine fibroid disease is identified. T he cervix is unremarkable. The endometrium measures 8 mm in thickness. No obvious mass or fluid collection. The right ovary measures 3.5 x 2.1 x 3.8 cm. There is a 3.2 cm complex area in the right ovary of unc ertain significance. Recently ruptured cyst The left ovary is unremarkable and measures 3.2 x 1.0 x 2.9 cm. There is trace free fluid in the cul-de-sac. Spectral Doppler waveforms demonstrate arterial flow to both ovaries. IMPRESSION: 3.2 cm complex area in the right ovary of uncertain significance. Possible recently ruptured ovarian cyst. No aggressive mass or pelvic abscess. The left ovarian lesion described on the previous exam has resolved. Unremarkable uterus and endometrium. Signer Name: Tex Saeed Jr, MD Signed: 11/13/2018 11:25 AM Workstation Name: [id number]
[2018-11-13 12:29] VITALS: BP 124/89
--- NOTE | 2018-11-13 13:43 | Cat Scan Report ---
CTA CHEST WITH IV CONTRAST INDICATION / CLINICAL INFORMATION: Chest pain and shortness of breath. TECHNIQUE: Axial CT images were obtained through the chest after injection of 100 cc Omnipaque 350 IV contrast. Consent was obtained prior to the administration of the contrast. 3 plane MIP and/or 3D reconstructio ns were produced. All CT scans at this location are performed using CT dose reduction based on patien t size. COMPARISON: None available. FINDINGS: PULMONARY ARTERIES: No pulmonary emboli. THORACIC AORTA: Normal. HEART: Normal. CORONARY ARTERIES: No significant calcification. PLEURA: No pleural effusion. No pneumothorax. LYMPH NODES: Mild right hilar lymph node enlargement. 3 lymph nodes measure approximately 1 cm each. LUNGS: Wedge-shaped consolidation of the right lower lobe extends to the pleura. A second area of mor e patchy airspace disease in the right lower lobe. The rest of the lungs are clear. ADDITIONAL FINDINGS: None. UPPER ABDOMEN: No acute findings. SKELETAL STRUCTURES: No significant osseous abnormality. IMPRESSION: 1. No CT evidence for pulmonary embolism. 2. Right lower lobe pneumonia with mild right hilar lymphadenopathy. Signer Name: Bola Cisneros MD Signed: 11/13/2018 1:39 PM Workstation Name: [id number]
[2018-11-13] MEDS ORDERED: AUGMENTIN 875 MG PO ONE (13:57)
== END 2018-11-13 16:00 | disposition home or self-care (01) ==
LOC: ED 08:33
DX: O46.91 Antepartum hemorrhage, unspecified, first trimester (principal); O99.511 Diseases of the respiratory system complicating pregnancy, first trimester; J18.1 Lobar pneumonia, unspecified organism; J45.909 Unspecified asthma, uncomplicated; F17.200 Nicotine dependence, unspecified, uncomplicated; Z3A.00 Weeks of gestation of pregnancy not specified; Z98.890 Other specified postprocedural states; Z79.899 Other long term (current) drug therapy; Z91.013 Allergy to seafood
CPT/HCPCS: 36415; 71046; 71275; 76830; 80053; 81001; 82550; 83735; 84484; 84702; 85027; 85379; 85610; 86850; 86900; 86901; 87086; 87210; 87591; 93005; 93010; 93975; 96374; 96375; 99285; J2405; J3010; J7040; Q9967

== ENCOUNTER 2020-08-06 07:39 | Emergency (ER) | payer MEDICAID ==
[2020-08-06 08:44] LABS: Basophils % (Auto) 0.6 % (0.0-1.8); Eosinophils # (Auto) 0.1 K/mm3 (0.0-0.4); Eosinophils % (Auto) 2.1 % (0.0-4.3); Hematocrit 32.8 % (30.3-42.9); Hemoglobin 10.7 gm/dl (10.1-14.3); Lymphocytes # (Auto) 2.2 K/mm3 (1.2-5.4); Lymphocytes % (Auto) 47.5 % (13.4-35.0); Mean Corpuscular HGB Conc 33 % (30-34); Mean Corpuscular Volume 79 fl (79-97); Monocytes # (Auto) 0.5 K/mm3 (0.0-0.8); Monocytes % (Auto) 10.5 % (0.0-7.3); Platelet Count 307 K/mm3 (140-440); Red Blood Count 4.15 M/mm3 (3.65-5.03); Red Cell Distribution Width 15.3 % (13.2-15.2)
[2020-08-06 09:12] LABS: Alanine Aminotransferase 12 units/L (7-56); Albumin 3.6 g/dL (3.9-5); Blood Urea Nitrogen 8 mg/dL (7-17); Calcium 8.4 mg/dL (8.4-10.2); Hemolysis Index 7
[2020-08-06] MEDS ORDERED: SODIUM CHLORIDE 0.9% 1000 ML 1,000 ML IV ONE (09:32)
[2020-08-06] MEDS ORDERED: IPRATROPIUM/ALBUTEROL SULFATE 3 ML AMPUL.NEB IH ONE (09:34)
--- NOTE | 2020-08-06 09:36 | Emergency Department Report ---
HPI - General Chief Complaint: Alcohol Time Seen by Provider: 08/06/20 09:25 - HPI HPI: This is a 29-year-old female who presents to the emergency department via EMS from home with a complaint of some generalized weakness, shakiness and fatigue that has been going on since yesterday. The patient drank alcohol and smoked marijuana that was soaked in liquor. She had one episode of nausea with vomiting yesterday but that has since resolved. Patient complains of some chest tightness with wheezing. She does have a history of asthma. She has not taken anything for symptoms prior to presentation. No recent travel or sick contacts at home. She denies any fever, lower extremity swelling, back pain, abdominal pain. She does not have a primary care physician. ED Past Medical Hx - Past Medical History Hx Asthma: Yes - Surgical History Additional Surgical History: left eye, 3 abortions - Social History Smoking Status: Never Smoker - Medications Home Medications: Home Medications Medication Instructions Recorded Confirmed Last Taken Type Acetaminophen/Codeine [Tylenol #3] 1 tab PO Q6H PRN #20 tab 05/17/15 Unknown Rx Ondansetron [Zofran Odt] 4 mg PO Q8H PRN #10 tab.rapdis 05/17/15 Unknown Rx traMADoL [Ultram 50 MG tab] 50 mg PO Q6HR PRN #20 tablet 05/17/15 Unknown Rx ALBUTEROL NEB's [Proventil 0.083% 2.5 mg IH Q4H PRN #1 box 03/15/16 Unknown Rx NEBS] Albuterol Mdi (or & Nicu Only) 2 puff IH QID PRN #1 inhalation 03/15/16 Unknown Rx [Proair] Amoxicillin/K Clav Tab [Augmentin 1 tab PO Q12HR #20 tab 03/15/16 Unknown Rx 875 mg] predniSONE [Deltasone] 50 mg PO QDAY #5 tab 03/15/16 Unknown Rx HYDROcodone/APAP 5-325 [Crocker 1 each PO Q6HR PRN #12 tablet 03/28/16 Unknown Rx 5/325] Ketorolac Tromethamine [Acular 1 drop OP Q6H PRN #1 drops 03/28/16 Unknown Rx 0.5% Opth Soln] Ofloxacin 0.3% [Ocuflox 0.3% opth] 1 drops OP Q30MIN #1 bottle 12/11/16 Unknown Rx Ciprofloxacin HCl [Ciprofloxacin 500 mg PO BID #6 tablet 12/24/16 Unknown Rx TAB] Ibuprofen [Motrin] 600 mg PO Q8H PRN #30 tablet 12/24/16 Unknown Rx Acetaminophen [Non-Aspirin Extra 500 mg PO Q6HR PRN #30 tablet 11/13/18 Unknown Rx Strength] Albuterol Sulfate [Proair 90 mcg IH Q4HR PRN #2 aer.pow.ba 11/13/18 Unknown Rx Respiclick] Amoxicillin/Potassium Clav 1 each PO BID #13 tablet 11/13/18 Unknown Rx [Augmentin 875-125 Tablet] Doxylamine Succinate/Vit B6 1 each PO QHS PRN #30 tablet. 11/13/18 Unknown Rx [Diclegis Dr 10-10 mg Tablet] Sameera Root [Sameera] 250 mg PO QID PRN #30 capsule 11/13/18 Unknown Rx Vit-Fe Fumar-FA [ 1 tab PO QDAY #30 tablet 11/13/18 Unknown Rx Vitamin] ED Review of Systems ROS: Stated complaint: LETHARGIC Other details as noted in HPI Comment: All other systems reviewed and negative Constitutional: weakness. denies: chills, fever Eyes: denies: eye pain, vision change ENT: denies: ear pain, throat pain Respiratory: shortness of breath, wheezing Cardiovascular: chest pain. denies: edema Gastrointestinal: denies: abdominal pain, diarrhea, constipation Genitourinary: denies: dysuria, discharge Musculoskeletal: denies: back pain, arthralgia Skin: denies: rash, lesions Neurological: other (Shakiness). denies: numbness, paresthesias Physical Exam - Physical Exam Vital Signs: Vital Signs 08/06/20 07:51 Temperature 98 F Pulse Rate 70 Respiratory 20 Rate Blood Pressure 118/69 [Right] O2 Sat by Pulse 100 Oximetry Physical Exam: GENERAL: The patient is well-developed well-nourished. HENT: Normocephalic. Atraumatic. Patient has moist mucous membranes. EYES: Extraocular motions are intact. No nystagmus. NECK: Supple. Trachea is midline. CHEST/LUNGS: Mild expiratory wheezing. No tachypnea or accessory muscle use. There is no respiratory distress noted. HEART/CARDIOVASCULAR: Regular. There is no tachycardia. There is no murmur. ABDOMEN: Abdomen is soft, nontender. Patient has normal bowel sounds. There is no abdominal distention. SKIN: Skin is warm and dry. NEURO: The patient is awake, alert, and oriented. The patient is cooperative. The patient has no focal neurologic deficits. Normal speech. Cranial nerves II through XII grossly intact. MUSCULOSKELETAL: There is no tenderness or deformity. There is no limitation range of motion. ED Course Vital Signs 08/06/20 07:51 Temperature 98 F Pulse Rate 70 Respiratory 20 Rate Blood Pressure 118/69 [Right] O2 Sat by Pulse 100 Oximetry ED Medical Decision Making - Lab Data Result diagrams: 08/06/20 08:13 08/06/20 08:13 Lab Results 08/06/20 08/06/20 08/06/20 Range/Units 08:13 08:13 08:13 WBC 4.6 (4.5-11.0) K/mm3 RBC 4.15 (3.65-5.03) M/mm3 Hgb 10.7 (10.1-14.3) gm/dl Hct 32.8 (30.3-42.9) % MCV 79 (79-97) fl MCH 26 L (28-32) pg MCHC 33 (30-34) % RDW 15.3 H (13.2-15.2) % Plt Count 307 (140-440) K/mm3 Lymph % (Auto) 47.5 H (13.4-35.0) % [place] % (Auto) 10.5 H (0.0-7.3) % Eos % (Auto) 2.1 (0.0-4.3) % Baso % (Auto) 0.6 (0.0-1.8) % Lymph # (Auto) 2.2 (1.2-5.4) K/mm3 [place] # (Auto) 0.5 (0.0-0.8) K/mm3 Eos # (Auto) 0.1 (0.0-0.4) K/mm3 Baso # (Auto) 0.0 (0.0-0.1) K/mm3 Seg Neutrophils % 39.3 L (40.0-70.0) % Seg Neutrophils # 1.8 (1.8-7.7) K/mm3 Sodium 141 (137-145) mmol/L Potassium 3.9 (3.6-5.0) mmol/L Chloride 109.2 H (98-107) mmol/L Carbon Dioxide 26 (22-30) mmol/L Anion Gap 10 mmol/L BUN 8 (7-17) mg/dL Creatinine 0.5 L (0.6-1.2) mg/dL Estimated GFR > 60 ml/min BUN/Creatinine Ratio 16 % Glucose 91 (65-100) mg/dL Calcium 8.4 (8.4-10.2) mg/dL Total Bilirubin 0.20 (0.1-1.2) mg/dL AST 14 (5-40) units/L ALT 12 (7-56) units/L Alkaline Phosphatase 55 (35-129) units/L Troponin T (0.00-0.029) ng/mL Total Protein 6.1 L (6.3-8.2) g/dL Albumin 3.6 L (3.9-5) g/dL Albumin/Globulin Ratio 1.4 % TSH (0.270-4.200) mlU/mL HCG, Qual (Negative) Plasma/Serum Alcohol < 0.01 (0-0.07) % 08/06/20 08/06/20 08/06/20 Range/Units 09:54 09:54 09:54 WBC (4.5-11.0) K/mm3 RBC (3.65-5.03) M/mm3 Hgb (10.1-14.3) gm/dl Hct (30.3-42.9) % MCV (79-97) fl MCH (28-32) pg MCHC (30-34) % RDW (13.2-15.2) % Plt Count (140-440) K/mm3 Lymph % (Auto) (13.4-35.0) % [place] % (Auto) (0.0-7.3) % Eos % (Auto) (0.0-4.3) % Baso % (Auto) (0.0-1.8) % Lymph # (Auto) (1.2-5.4) K/mm3 [place] # (Auto) (0.0-0.8) K/mm3 Eos # (Auto) (0.0-0.4) K/mm3 Baso # (Auto) (0.0-0.1) K/mm3 Seg Neutrophils % (40.0-70.0) % Seg Neutrophils # (1.8-7.7) K/mm3 Sodium (137-145) mmol/L Potassium (3.6-5.0) mmol/L Chloride (98-107) mmol/L Carbon Dioxide (22-30) mmol/L Anion Gap mmol/L BUN (7-17) mg/dL Creatinine (0.6-1.2) mg/dL Estimated GFR ml/min BUN/Creatinine Ratio % Glucose (65-100) mg/dL Calcium (8.4-10.2) mg/dL Total Bilirubin (0.1-1.2) mg/dL AST (5-40) units/L ALT (7-56) units/L Alkaline Phosphatase (35-129) units/L Troponin T 0.010 (0.00-0.029) ng/mL Total Protein (6.3-8.2) g/dL Albumin (3.9-5) g/dL Albumin/Globulin Ratio % TSH 0.522 (0.270-4.200) mlU/mL HCG, Qual Negative (Negative) Plasma/Serum Alcohol (0-0.07) % - EKG Data -: EKG Interpreted by In EKG shows normal: sinus rhythm, axis, intervals, QRS complexes, ST-T waves Rate: bradycardia (57 bpm) - EKG Data When compared to previous EKG there are: previous EKG unavailable Interpretation: normal EKG - Medical Decision Making This patient presents to the emergency department with a complaint of some nausea, generalized weakness, fatigue and "shakiness", after using some combination of marijuana and alcohol. On examination the patient is sleepy but is easily arousable. Once awake she is oriented to person, place, time. She does not have any focal, motor or sensory deficits and her cranial nerves are intact. Patient had some very mild expiratory wheezing and was given a DuoNeb breathing treatment. Upon reevaluation the wheezing has resolved. She does not appear to have any respiratory or acute distress. EKG did not show any morphology consistent with ST elevation myocardial infarction or any arrhythmia. Patient's labs have been unremarkable including CBC, metabolic panel, thyroid function, blood alcohol level. She did not provide a urine sample for urinalysis or UDS. I had plan to give the patient some IV fluid resuscitation but the patient refused IV placement. Vital signs have been reassuring throughout her ED course. She has been reevaluated multiple times over multiple hours and feels and appears improved. She was seen ambulatory in the emergency department and appears stable. For all these reason she appears safe for discharge home at this time. She has been instructed to follow-up with primary care and return to the ER with any worsening of her symptoms or with any acute distress. Critical Care Time: No Critical care attestation.: If time is entered above; I have spent that time in minutes in the direct care of this critically ill patient, excluding procedure time. ED Disposition Clinical Impression: Generalized weakness, Polysubstance abuse Fatigue Qualifiers: Fatigue type: unspecified Qualified Code(s): R53.83 - Other fatigue Disposition: - TO HOME OR SELFCARE Is pt being admited?: No Condition: Stable Instructions: Fatigue, Weakness Additional Instructions: Please avoid any further alcohol or illicit drug use. Follow-up with a primary care physician in the next few days. I have given you a referral for to local primary care physicians, as well as a local primary care clinic. Please make sure to try and get 8 hours of uninterrupted sleep at night. Stay hydrated and eat balanced meals. Return to the emergency department with any worsening of your symptoms, new or concerning symptoms not addressed during this current emergency department visit, or with any acute distress. Referrals: NURIA GATES MD [Primary Care Provider] - 3-5 Days MITZI LONG MD [Staff Physician] - 3-5 Days SHANTELL RAM MD [Staff Physician] - 3-5 Days [facility] [Provider Group] - 3-5 Days Time of Disposition: 11:33
[2020-08-06 09:49] LABS: BUN/Creatinine Ratio 16
[2020-08-06 10:22] VITALS: BP 94/56
--- NOTE | 2020-08-07 09:36 | Electrocardiograph Report ---
[facility] Test Date: 2020-08-06 Test Time: 10:31:15 Pat Name: EPIFANIO CONTE Department: Room: Gender: F [facility] 1990 Requested By: CHELSEY ESCUDERO Order Number: [id number] Reading MD: Mateusz Chirinos Measurements Intervals [place] Rate: 57 P: 60 SD: 162 QRS: 58 QRSD: 83 T: 49 QT: 439 QTc: 429 Interpretive Statements Sinus bradycardia No previous ECG available for comparison Electronically Signed On 08-07-2020 9:36:30 EDT by Mateusz Chirnios
== END 2020-08-06 13:17 | disposition home or self-care (01) ==
LOC: ED 07:39
DX: F19.10 Other psychoactive substance abuse, uncomplicated (principal); R53.1 Weakness; R53.83 Other fatigue; J45.909 Unspecified asthma, uncomplicated; Z79.899 Other long term (current) drug therapy; Z91.013 Allergy to seafood; Z98.890 Other specified postprocedural states
CPT/HCPCS: 36415; 80053; 84443; 84484; 84703; 85025; 93005; 94640; 99285; J7030; 80320; 94644; G0480